=== PATIENT | male | born 1970 | race Caucasian/White ===

== ENCOUNTER → 2017-09-28 | Outpatient (CLI) | payer OTHER | END | disposition home or self-care (01) | LOC: RAD 10:17 | DX: Z01.810 Encounter for preprocedural cardiovascular examination (principal); I10 Essential (primary) hypertension; J44.9 Chronic obstructive pulmonary disease, unspecified ==

== ENCOUNTER 2017-10-04 08:17 | Day surgery (SDC) | payer OTHER | END 2017-10-04 16:45 | disposition home or self-care (01) | LOC: CIR.AMB 08:17 | DX: M65.321 Trigger finger, right index finger (principal) ==

== ENCOUNTER → 2020-05-20 08:00 | Outpatient (CLI) | payer OTHER ==
[~2020-05-20 08:00] MED LIST: XYZAL5 MG PO; ZYRTEC10 M3 PO
== END | disposition home or self-care (01) ==
LOC: ADM 05-13 09:00 → LAB 08:00 → EDSTATUS 05-27 09:00 → CIR.AMB 05-27 09:00
PROVIDERS: ATTEND Orthopaedic Surgery Hand Surgery
DX: Z20.828 Contact with and (suspected) exposure to other viral communicable diseases (principal); M67.431 Ganglion, right wrist; I10 Essential (primary) hypertension; R05 Cough; N39.0 Urinary tract infection, site not specified; D66 Hereditary factor VIII deficiency; D65 Disseminated intravascular coagulation [defibrination syndrome]; E78.3 Hyperchylomicronemia; E78.00 Pure hypercholesterolemia, unspecified; E11.9 Type 2 diabetes mellitus without complications; Z01.810 Encounter for preprocedural cardiovascular examination

== ENCOUNTER 2020-08-05 06:00 | Day surgery (SDC) | payer OTHER | END 2020-08-05 14:35 | disposition home or self-care (01) | LOC: CIR.AMB 06:00 | PROVIDERS: ATTEND Orthopaedic Surgery Hand Surgery | DX: M67.431 Ganglion, right wrist (principal); Z20.822 Contact with and (suspected) exposure to COVID-19 ==

== ENCOUNTER 2021-11-10 07:00 | Day surgery (SDC) | payer OTHER ==
[~2021-11-10] VITALS: Ht 172.7 cm; Wt 69.9 kg
== END 2021-11-10 12:50 | disposition home or self-care (01) ==
LOC: CIR.AMB 07:00
PROVIDERS: ATTEND Orthopaedic Surgery Hand Surgery
DX: M65.332 Trigger finger, left middle finger (principal); Z20.822 Contact with and (suspected) exposure to COVID-19; Z91.041 Radiographic dye allergy status; Z91.018 Allergy to other foods; Z91.048 Other nonmedicinal substance allergy status; J45.909 Unspecified asthma, uncomplicated; Z86.16 Personal history of COVID-19; Z87.891 Personal history of nicotine dependence

== ENCOUNTER 2022-10-19 06:42 | Day surgery (SDC) | payer OTHER ==
[~2022-10-19] VITALS: Ht 172.7 cm; Wt 72.6 kg
== END 2022-10-19 11:25 | disposition home or self-care (01) ==
LOC: CIR.AMB 06:42
PROVIDERS: ATTEND Orthopaedic Surgery Hand Surgery
DX: M65.331 Trigger finger, right middle finger (principal); Z20.822 Contact with and (suspected) exposure to COVID-19; E11.9 Type 2 diabetes mellitus without complications; E78.3 Hyperchylomicronemia; I10 Essential (primary) hypertension; Z91.041 Radiographic dye allergy status